=== PATIENT | male | born 2000 | race Caucasian/White ===

== ENCOUNTER 2024-10-06 01:20 | Outpatient (CLI) | payer BC, SELFPAY ==
--- NOTE | 2024-10-06 07:45 | DI.RAD_ITS ---
Exam(s) XR FOOT LT COMPLETE EXAM: XR FOOT LT COMPLETE CLINICAL HISTORY: Left foot pain,m79.672. TECHNIQUE: 2D digital imaging was performed. COMPARISON: CR XR FOOT RT COMPLETE from 10/06/2024 FINDINGS: 3 views No evidence of fracture or diastasis of the Lisfranc joint. Great toe metatarsal joint appears unrem arkable and there is no hallux valgus. No osseous lesions nor erosions. No pes planus. Bone densit y normal. No inferior calcaneal spur and no enthesophytes evident. No accessory ossicles. There is slight lateral subluxation of the distal phalanx of the 2nd toe. Identical finding is seen in the opposite-right foot. There are no degenerative changes at the DIP joint. IMPRESSION: Mild lateral subluxation of the distal phalanx of the 2nd toe relative to the distal articular surfac e of the proximal phalanx. Please note that identical finding is seen in the opposite-right foot. DATA REPOSITORY: RADIATION DOSE DELIVERED:
--- NOTE | 2024-10-06 07:45 | DI.RAD_ITS ---
Exam(s) XR FOOT RT COMPLETE EXAM: XR FOOT RT COMPLETE CLINICAL HISTORY: Right foot pain,m79.671. TECHNIQUE: 2D digital imaging was performed. COMPARISON: No exams were available for comparison FINDINGS: 3 views No evidence of fracture or diastasis of the Lisfranc joint. Great toe metatarsophalangeal joint appe ars unremarkable and there is no hallux valgus. Bone density normal. No osseous lesions nor erosion s. No osteoarthritic degenerative changes. No pes planus. No inferior calcaneal spur. No enthesop hytes. No evidence of osseous tarsal coalition. IMPRESSION: No significant radiographic findings in the right foot. DATA REPOSITORY: RADIATION DOSE DELIVERED:
== END 2024-10-06 01:40 ==
LOC: DI 01:20
PROVIDERS: Visit Provider Podiatrist
DX: M79.672 Pain in left foot (principal); M79.671 Pain in right foot
CPT/HCPCS: 73630